=== PATIENT | female | born 1950 | race Caucasian/White ===

== ENCOUNTER 2018-07-31 12:47 | Inpatient (IN) ==
--- NOTE | 2018-07-31 12:37 | Physician Discharge Referral ---
Home Health/Hosp Referral Info Transfer to: Home Health Attending Provider: Dr. Seth - Diagnosis (1) Status post left hip replacement Priority: Primary Status: Acute (2) Osteoarthritis of left hip Priority: Primary Status: Chronic (3) Obesity (BMI 30.0-34.9) Priority: Secondary Status: Acute (4) CKD (chronic kidney disease) Priority: Secondary Status: Chronic (5) Depression with anxiety Priority: Secondary Status: Chronic - Respiratory Orders None Smoking Cessation: Smoking cessation has been advised. For more information, call the [place] Tobacco Quit Line at 2-120-ECZM-NOW. - Diet/Nutrition Diet/Nutrition Orders: Regular - Activity Activity Orders: Ambulate, Chair, Walker - Services Needed Following services are medically necessary services: Nursing, Home Health Aide, Physical Therapy, Occupational Therapy Home Care Orders: Opsite dressing, leave intact until first post-operative visit. If dressing becomes >50% saturated, contact office, remove dressing and place appropriate dressing in its place. Do not allow for dressing to get wet. Zipline/Mobile in place, plan to remove at post-operative day #14-16. Total Joint Precautions x 6 weeks Apply cold therapy wrap 3-6x/day for 20 minutes at a time. Encourage ambulation throughout the day Use Incentive spirometer 10x/hour. Elevate affected extremity above heart as tolerated. Brace: Wear hip abductor brace at night x 6 weeks. Certification: Further, I certify that my clinical findings support that this patient is homebound (i.e. absences from home require considerable and taxing effort and are for medical reasons or episcopalian services or infrequently or short duration when for other reasons) because: Homebound Reason: Post-surgery restriction and or conditions limit ability to leave home Attestation: My signature below is to certify that this patient is under my care and that I, or nurse practitioner, or a physician real estate administrative assistant working with me, has a [id number] encounter with this patient.
--- NOTE | 2018-07-31 12:45 | Discharge Summary ---
Orders not resulted at time of discharge: Pending orders 07/31/18 09:45 XR hip complete LT [XR] Routine Hemoglobin and Hematocrit [HEME] Routine Date of Encounter: 08/03/18 Time of Encounter: 06:40 - Discharge Diagnosis (1) Acute blood loss anemia Priority: Primary Status: Acute (2) Obesity (BMI 30.0-34.9) Priority: Secondary Status: Chronic (3) Status post left hip replacement Priority: Primary Status: Acute (4) CKD (chronic kidney disease) Priority: Secondary Status: Chronic Qualifiers: Chronic kidney disease stage: stage 2 (mild) Qualified Code(s): N18.2 - Chronic kidney disease, stage 2 (mild) (5) Depression with anxiety Priority: Secondary Status: Chronic (6) Osteoarthritis of left hip Priority: Primary Status: Chronic Qualifiers: Osteoarthritis type: primary Qualified Code(s): M16.12 - Unilateral primary osteoarthritis, left hip - Hospital Course Hospital course: Ms. Langley is a 68 year old female s/p total hip replacement, did well receive antibiotics and had PT/OT dc stable condition followup 2 weeks - Time Spent with Patient Total time spent providing and/or coordinating discharge services: - Discharge Medications Prescriptions: New Aspirin Enteric Coated [Aspirin EC] 325 mg PO BID #20 tablet. OxyCODONE Immed Rel [Roxicodone 5 MG] 5 mg PO Q6HR PRN 5 Days #20 tablet PRN Reason: Pain Aspirin Enteric Coated [Aspirin EC] 325 mg PO BID #20 tablet. OxyCODONE Immed Rel [Roxicodone 5 MG] 5 mg PO Q6HR PRN 5 Days #20 tablet PRN Reason: Pain No Action Sertraline [Zoloft] 100 mg PO DAILY LORazepam [Ativan] 1 mg PO BID Ibuprofen [Motrin Ib] 200 mg PO Q8H PRN PRN Reason: Mild To Moderate Pain Home Medications: Aspirin Enteric Coated [Aspirin EC] 325 mg PO BID #20 tablet. 07/31/18 [Rx] Aspirin Enteric Coated [Aspirin EC] 325 mg PO BID #20 tablet. 07/31/18 [Rx] Ibuprofen [Motrin Ib] 200 mg PO Q8H PRN 07/31/18 [History] LORazepam [Ativan] 1 mg PO BID 07/31/18 [History] OxyCODONE Immed Rel [Roxicodone 5 MG] 5 mg PO Q6HR PRN 5 Days #20 tablet 07/31/18 [Rx] OxyCODONE Immed Rel [Roxicodone 5 MG] 5 mg PO Q6HR PRN 5 Days #20 tablet 07/31/18 [Rx] Sertraline [Zoloft] 100 mg PO DAILY 07/31/18 [History] Allergies/Adverse Reactions: Allergy/AdvReac Type Severity Reaction Status Date / Time No Known Allergies Allergy Verified 07/31/18 13:40 Primary care physician: Zaire Amaya - Patient Status Disposition: Home Health Service Condition: Good Functional capacity at discharge: uses cane/walker Overall status at discharge: patient is progressing back to baseline - Discharge Instructions Follow Up With: Zaire Amaya DO [Primary Care Provider] - Additional Instructions: Discharge Instructions: Total Hip Replacement Please call [facility] ([phone]), your Primary Care Physician, or report to the Emergency Room if you have any of the following symptoms: Nausea, vomiting, fever greater that 101.5, swelling, chest pain, shortness of breath, increased pain/redness/drainage/odor for your incision site, numbness/tingling, or any other concerning symptoms. ACTIVITY:Weight-bearing as tolerated for 8 weeks with hip dislocation precautions that physical therapy taught you. You may progress as tolerated under the guidance of your physical therapist. You do not need to sleep with a pillow between your legs. You can also seep on the operative side or on your stomach. Incentive Spirometer 10 times an hour. MEDICATIONS: Upon discharge resume your home medications. Take all the medications as prescribed. Take a stool softener if taking narcotic pain medications. Stool softeners are only effective if you drink enough fluids. Drink 6-8 glass of water or fluids a day, unless this is not allowed for another health problem. Despite using stool softeners, if you haven't had a bowel movement in 3 days, please switch to a gentle laxative. Gentle laxatives are sold over the counter. You should have a bowel movement within 24 hours, if not call the office. You will be discharged from the hospital with a prescription for pain medication. You are encouraged to decrease the use of narcotic pain medication as tolerated. Should you require a refill, please call the office. [facility] prescribes narcotic pain medication for only 4-6 weeks after surgery. If you require pain medication beyond this time period, you may be referred to your Primary Care Physician or to the Pain Clinic for further evaluation. Plan ahead for refills on pain medication as many narcotics either need to be picked up at the office or mailed. It is best to call 48-72 hours in advance of needing a prescription refill so you don't run out of medication. To help control the post-operative pain, you may take NSAIDs (Aleve,Advil, Motrin, ibuprofen, naprosyn) or Tylenol as prescribed on the bottle in addition to the pain medication. ANTICOAGULATION (blood thinners): Continue your Aspirin, Lovenox or Coumadin as prescribed to help prevent a blood clot in the leg or in the lungs. As long as your incision remains dry and you tolerate the NSAIDs (Aleve, Advil, Motrin, Ibuprofen, Naprosyn), it is OK to use the NSAIDS while you are taking your anticoagulation medication. Should your incision start to drain, stop the NSAID and contact our office. Common symptoms of blood clot in the legs include: localized pain, swelling, calf tenderness, redness or discoloration of the skin. Blood clot in the lung symptoms include: shortness of breath, rapid pulse, sweating, and chest pain that worsens with deep breathing, coughing up blood, lightheadedness, feelings of anxiety. If you experience any of these symptoms notify your physician immediately, go to the emergency room, or if having trouble breathing, call 911. WOUND CARE: Leave the dressing on for 7 to 10days. You may change the dressing if it is saturated greater than 50%. Do not get the dressing wet at anytime. Wash your hands with antibacterial soap, rinse and dry prior to any wound care. If you have alecia the visiting nurse or rehab facility can remove the stapes 10-14 days after surgery and place steri-strips across the wound. Leave the steri-strips in place until they fall off on their own. You may let water from the shower run on top of the steri-strips. If you do not have a visiting nurse or rehab facility, you will need to return to the office at 10-14 days for the alecia to be removed. If you have itching or redness around the dressing call the office. FOLLOW-UP: Please follow up with your surgeon in the orthopedic clinic in 6 weeks from the day of surgery. If you have alecia that need to be removed, you will need to come back to the office in 10-14 days from the day of surgery.
--- NOTE | 2018-07-31 13:07 | Anesthesia Evaluation PreOp ---
Date of Encounter: 07/31/18 Time of Encounter: 13:26 - Past History Planned Operation: Left robotic total hip arthroplasty Cardiac History: Denies any Significant Hx Pulmonary History: Denies Any Significant HX MISSIONARY COORDINATOR History: Other (anxiety/depression) Other Medical History: Renal (stage 3 ckd) Anesthesia History: No Prior Anesthetic Complications, Past Anesthesia (left wr ist ORIF) Medications and Allergies Aspirin Enteric Coated [Aspirin EC] 325 mg PO BID #20 tablet. 07/31/18 [Rx] Aspirin Enteric Coated [Aspirin EC] 325 mg PO BID #20 tablet. 07/31/18 [Rx] OxyCODONE Immed Rel [Roxicodone 5 MG] 5 mg PO Q6HR PRN 5 Days #20 tablet 07/31/18 [Rx] OxyCODONE Immed Rel [Roxicodone 5 MG] 5 mg PO Q6HR PRN 5 Days #20 tablet [Rx] Allergy/AdvReac Type Severity Reaction Status Date / Time No Known Allergies Allergy Verified 07/31/18 13:15 - Meds/Allergy Pre-op Review Medications Reviewed: Yes Allergies Reviewed: Yes Beta Blockers on Current Med List: No Anesthesia Results - Labs Labs completed at [facility]: 07-23-18 MRSA nasal screen negative 07-21-18 Labs: WBC 9.6 Hgb 14.0 Hct 41.1 Plt 351 PT 12.2 INR 1.04 PTT 39.4 Na 140 K 3.6 Cl- 103 CO2 24 BUN 19 Cr 0.92 Glucose 103 - Imaging EKG: report reviewed, image reviewed (SR, probable left atrial enlargement) Anesthesia Exam Weight: 79 kg NPO (# of Hours): > 8 hrs - HEENT Pupil (Motor): Pupils equal, EOMI Mallampati: III Teeth: Prosthesis (permanent upper bridge) Oral Opening: Greater than 3 - MISSIONARY COORDINATOR LOC: Oriented - Cardiac Rhythm: Regular Murmur: None - Pulmonary Breath Sounds: bilateral Clear Respiratory Effort: Symmetrical Anesthesia Assess/Plan ASA Score: 2 Level of consciousness: Cooperative Anesthetic Plan: MAC, Spinal Monitoring Plan: Standard Monitors Recovery Plan: PACU
[2018-07-31] MEDS ORDERED: CeFAZolin Syr 2,000MG/20 ML 2,000 MG/20 ML SYRINGE IVPB ONE (13:16)
[2018-07-31] MEDS ORDERED: Ringers Solution, Lactated 1,000 ML IVC SCH ×2 (13:30→16:39)
[2018-07-31] MEDS ORDERED: *HR* HYDROcodone/Acet 10/325 mg TABLET PO ONE (13:31)
[2018-07-31] MEDS ORDERED: Celecoxib 200 MG CAPSULE PO ONE (13:32)
[2018-07-31] MEDS ORDERED: *HR* HYDROcodone/Acet 5/325 mg TABLET PO ONE (13:34)
[2018-07-31] MEDS ORDERED: Lidocaine -MPF 1% 5 ML AMPUL ONE (13:36)
[2018-07-31] MEDS ORDERED: Ethanol\\Acetic Acid\\Na Ace\\Ben 1,000 ML IRRIG.SOLN IR ONE (13:49)
--- NOTE | 2018-07-31 13:50 | History & Physical Report ---
Date of Encounter: 07/31/18 Time of Encounter: 13:50 24 Hour HP Update - Instructions Instructions: If the History and Physical is less than 30 days old and was completed prior to A.M. admission and or procedure and has NOT been updated on calendar day of procedure please complete this update prior to performing procedure. - Update Patient reports changes in Medical Condition: No Changes in examination, assessment, or condition: No Changes in Medication: No Preop tests/diagnostics Reviewed: Yes Surgery Remains Indicated: Yes Consent for Planned Operative Procedure(s) Verified: Yes - Pre-Operative Checklist Preoperative Checklist Indicated: No Prophylactic Antibiotic Ordered: Yes Is VTE Prophylaxis Indicated?: Yes
[2018-07-31] MEDS ORDERED: EPHEDrine 50 MG/ML VIAL ONE (14:39)
[2018-07-31] MEDS ORDERED: *HR* Midazolam HCl 2 MG/2 ML VIAL ONE (14:39)
[2018-07-31] MEDS ORDERED: Tranexamic Acid 1,000 MG/10 ML VIAL ONE (14:39)
[2018-07-31] MEDS ORDERED: *HR* FentaNYL (PF) 100 MCG/2 ML VIAL ONE (14:39)
[2018-07-31] MEDS ORDERED: *HR* Propofol 200 MG/20 ML VIAL IVP ONE ×2 (14:39→15:16)
--- NOTE | 2018-07-31 15:32 | Anesthesia Procedures ---
Date of Encounter: 07/31/18 Time of Encounter: 14:10 Procedures: Anesthesia - Epidural/Spinal Patient ID/Chart reviewed: Yes Patient examined: Yes Consent Obtained: Yes Supplemental Oxygen: Nasal Cannula Supplemental Oxygen Rate (L/min): 3 Sedation: Versed (mg): 2 Sedation: Fentanyl (mcg): 100 Site Prep: Aseptic Technique, Sterile prep and drape, Povidone-Iodine 1% Patient position: upright Local Anesthetic: Lidocaine 1% Amount of Local Anesthetic used: 3 Interspace Used: L4-L5 Blood: No CSF: Yes Paresthesia: No Spinal Needle Gauge: 25 (3.5" pencan needle) Spinal Dose: 2.5mL of 0.5% isobaric bupivicaine Procedure: successful on 1st attempt; patient tolerated procedure well; VSS Vitals + FHT's: see holding vital signs note
--- NOTE | 2018-07-31 15:35 | Orthopedic Operative Note ---
Date of procedure: 07/31/18 Pre-op diagnosis: Osteoarthritis left hip Post-op diagnosis: same Procedure: Procedure: Left Total Hip Replacment robotic-assisted Estimated blood loss: 200 cc Hardware: Metal and polyethylene replacement. [place] DM Cup: 54 cup Femoral size 5 stem Head: 0 head with Flakita Procedural Notes: Grade 4 arthritic changes femoral head acetabular socket, procedure performed with robotic assistance. 1 mm long operative versus nonoperative leg as measured by CT scan Operative procedure: The patient was brought to the operating room and placed on the operating room table. After general anesthesia was administered the patient was placed in the lateral decubitus position with the operative leg up. All pressure points were padded appropriately and the head was stabilized in the neutral position. The operative extremity was prepped and draped in the sterile surgical fashion patient received IV antibiotic prior to skin incision. 3 Steinmann pins were placed in the iliac crest 3 cm proximal to the anterior superior iliac spine this was for the robotic-assisted sensor. This was done through a small 2 cm incision. A standard posterior approach is made to the operative hip, the incision was made through the skin and subcutaneous tissue hemostasis was obtained with Bovie cautery. Using careful sharp dissection the fascia was identified and incised exposing the external rotators. The greater trochanter was marked, and length was measured at this time utilizing robotic assistance. The external rotators were released off the greater trochanter and tagged with #2 FiberWire suture. The capsule was T'd open and the hip was brought into internal rotation. Patient noted to have grade 4 arthritic changes femoral head. The femoral neck cut was made at the appropriate level roughly 15 mm proximal to the lesser trochanter aced on preoperative templating. An anterior capsulotomy was performed for the anterior retractor. Soft tissues removed from the acetabulum. Patient noted to have grade 4 arthritic changes acetabulum. The acetabulum reference point was confirmed. The acetabulum was then mapped with robotic assistance. Based on the preoperative plan the acetabulum was reamed in one step with a 54 reamer. The 54 acetabulum was impacted with robotic assistance and 40 degrees of abduction and 23 degrees of anteversion. The hip was brought back in to internal rotation and prepared with the primer boxer followed by the canal finder followed by the reaming process to a size 12 broaching process in 20 degrees anteversion. It was broached up to the appropriate size 5 Trial reduction revealed leg lengths close to normal. The femoral implant was impacted in place in 20 degrees of anteversion. Trial reduction found the hip to be stable with 0 head and Flakita. The trials were removed and the real implants were impacted in place. The hip was reduced, patient had robotic confirmed leg length of 15 mm longer than the contralateral side. The hip had excellent stability with forward flexion to 90 degrees adduction of 30 degrees and internal rotation of 60 degrees. The hip had no shuck. The hip sat with an antibacterial solution. It was irrigated out with 2 L of pulse irrigation. The Steinmann pins were removed. The deep tissue was irrigated and closed deep with #1 PDS suture superficially with 0 PDS suture and skin was closed with Dermabond and zip tie. The patient was placed in a sterile dressing and abduction pillow. The patient was extubated and transferred to the recovery room in stable condition. Anesthesia: spinal Surgeon: Van Seth Was there an executive assistant present: No Estimated blood loss (cc): 200 Condition: stable Disposition: PACU
--- NOTE | 2018-07-31 16:20 | Anesthesia Evaluation Post Op ---
Date of Encounter: 07/31/18 Time of Encounter: 16:19 - Vital Signs Vital Signs: Vital Signs/O2 Sat, Most Current Temp Pulse Resp BP Pulse Ox 98.2 F 61 12 128/62 97 07/31/18 16:12 07/31/18 16:12 07/31/18 16:12 07/31/18 16:12 07/31/18 16:12 - Lungs Lungs: Clear Ascult./Percussion - Airway Airway: Non-obstructed - Cardiovascular Regular Rate - Mental Status Mental Status: Alert & Oriented, Answers Appropriately - Pain Pain Scale: 0 Pain Scale used: Numeric (1 - 10) - Nausea Vomiting Nausea Vomiting: Not Present - Hydration Hydration: Ice chips, Has not voided - Discharge PostOp Status: Transfer Patient to floor
[2018-07-31 16:30] LABS: Hematocrit 33.2 % (35.3-44.9); Hemoglobin 11.3 g/dL (11.5-15.4)
[2018-07-31] MEDS ORDERED: HYDROcodone BIT/Homatropine 5 MG TABLET PO PRN (16:39)
[2018-07-31] MEDS ORDERED: Ondansetron 4 MG/2 ML VIAL IVP PRN (16:39)
[2018-07-31] MEDS ORDERED: Sennosides 8.6 MG TABLET PO PRN (16:39)
[2018-07-31] MEDS ORDERED: Naloxone 0.4 MG/ML INJ IVP PRN (16:39)
[2018-07-31] MEDS ORDERED: Temazepam 15 MG CAPSULE PO PRN (16:39)
[2018-07-31] MEDS ORDERED: Ibuprofen 600 MG TABLET PO SCH (16:39)
[2018-07-31] MEDS ORDERED: MOM Conc 10 ML UD.LIQ PO PRN (16:39)
[2018-07-31] MEDS ORDERED: traMADol 50 MG TABLET PO PRN (16:39)
[2018-07-31] MEDS ORDERED: *HR* Promethazine 25 MG/ML VIAL IVP PRN (16:39)
[2018-07-31] MEDS ORDERED: *HR* Enoxaparin 30 MG/0.3 ML SYRINGE SQ SCH (18:00)
[2018-07-31] MEDS: *HR* Enoxaparin 30 MG/0.3 ML SYRINGE SQ SCH (19:36)
[2018-07-31] MEDS: Ascorbic Acid 500 MG TABLET PO SCH (19:36)
[2018-07-31] MEDS: *HR* OxyCODONE Immed Rel 5 MG TABLET PO PRN (20:44)
[2018-07-31] MEDS: *HR* LORazepam 1 MG TABLET PO SCH (21:44)
[2018-08-01] MEDS: *HR* Enoxaparin 30 MG/0.3 ML SYRINGE SQ SCH ×2 (06:27→16:45)
[2018-08-01] MEDS: *HR* OxyCODONE Immed Rel 5 MG TABLET PO PRN ×3 (06:27→21:00)
[2018-08-01] MEDS: Ibuprofen 600 MG TABLET PO SCH ×3 (06:28→23:24)
[2018-08-01] MEDS: Multivit/Ca/Min/Fe/FA 1 TAB TABLET PO SCH (07:19)
[2018-08-01] MEDS: Ascorbic Acid 500 MG TABLET PO SCH ×2 (07:19→16:45)
[2018-08-01] MEDS: *HR* LORazepam 1 MG TABLET PO SCH ×2 (07:20→19:26)
[2018-08-01 07:44] LABS: Basophils % 0.1 %; Eosinophils % 0.3 %; Hematocrit 32.2 % (35.3-44.9); Hemoglobin 10.7 g/dL (11.5-15.4); Immature Granulocytes % 0.3 % (0-4); Lymphocytes # 1.1 K/mcL (0.6-4.6); Lymphocytes % 14.8 %; Mean Corpuscular HGB Conc 33.2 g/dL (31.6-35.5); Mean Corpuscular Hemoglobin 31.7 pg (28.0-33.3); Mean Corpuscular Volume 95.3 fL (83.0-100.0); Mean Platelet Volume 9.5 fL (9.4-12.4); Monocytes # 0.7 K/mcL (0.0-1.3); Monocytes % 9.2 %; Neutrophils # 5.7 K/mcL (1.6-8.9); Platelet Count 247 K/mcL (140-400); Red Blood Count 3.38 M/mcL (3.82-4.97); Red Cell Distribution Width 12.8 % (11.5-14.5); Segmented Neutrophils % 75.3 %
[2018-08-01 08:03] LABS: BUN/Creatinine Ratio 24 (6-26); Blood Urea Nitrogen 16 mg/dL (8-23); Calcium 8.6 mg/dL (8.6-10.3); Carbon Dioxide 24 mEq/L (23-29); Chloride 108 mEq/L (98-107); Glucose 119 mg/dL (70-105); Osmolality,Calculated 288 (280-300); Potassium 3.3 mEq/L (3.5-5.1); Sodium 138 mEq/L (136-145); eGFR For Non-African Americans > 60 (> 60)
[2018-08-01] MEDS ORDERED: Ketorolac 30 MG/ML VIAL IVP PRN (11:27)
[2018-08-01] MEDS ORDERED: Acetaminophen IV 1,000 MG/100 ML INFUS..BTL IVPB PRN (11:28)
[2018-08-01] MEDS: Acetaminophen IV 1,000 MG/100 ML INFUS..BTL IVPB SCH ×2 (11:51→16:44)
--- NOTE | 2018-08-01 15:05 | Orthopedics Progress Note ---
Date of Encounter: 08/01/18 Time of Encounter: 15:03 Subjective Principal diagnosis: Status post left total hip arthroplasty Interval history: Patient reports she is doing well with no current complaints She states she did well with therapy today Left hip: Incision is clean dry intact with dressings in place Bilateral calves are soft and nontender Foot pumps are in place Grossly neurovascular intact distally Assessment: Postoperative #1 status post a left total hip arthroplasty Plan: Continue OT/PT Continue DVT prophylaxis Discharge planning to home with home therapy Objective Vital signs: Vital Signs Temp Pulse Resp BP Pulse Ox 08/01/18 10:37 97.9 F 78 16 139/63 96 08/01/18 06:50 97.7 F 64 16 112/64 95 08/01/18 04:41 98.1 F 66 16 111/60 96 08/01/18 00:23 97.9 F 68 16 118/64 95 07/31/18 19:47 97.7 F 68 16 133/65 95 07/31/18 16:22 98.2 F 62 12 135/60 97 07/31/18 16:12 98.2 F 61 12 128/62 97 07/31/18 16:02 62 12 128/63 96 07/31/18 15:52 62 16 125/63 100 07/31/18 15:42 97.6 F 64 16 128/72 100 Intake and Output 07/31/18 08/01/18 08/01/18 23:59 07:59 15:59 Intake Total 600 / 1280 680 / 1280 Output Total 200 / 400 Balance -200 / -380 600 / 1280 680 / 1280 Intake: IV Fluids 100 / 300 200 / 300 Ofirmev 1,000 mg/100 ml 1,000 100 / 100 mg In 100 ml @ 400 mls/hr IVPB Q6HR MERVIN Rx#:[id number] Ancef 2,000 MG In 0.9 % Sodium 100 / 200 100 / 200 Chloride 100 ML @ 200 mls/hr IVPB Q8HR MERVIN Rx#:[id number] Oral 500 / 980 480 / 980 Output: Urine 200 / 200 Other: Meal Lunch Percent of Meal Consumed 100% # Voids 1 1 - Labs CBC & BMP: 08/01/18 07:23 08/01/18 07:23 Labs: Abnormal lab results RBC 3.38 M/mcL (3.82-4.97) L 08/01/18 07:23 Hgb 10.7 g/dL (11.5-15.4) L 08/01/18 07:23 Hct 32.2 % (35.3-44.9) L 08/01/18 07:23 Potassium 3.3 mEq/L (3.5-5.1) L 08/01/18 07:23 Chloride 108 mEq/L (98-107) H 08/01/18 07:23 Glucose 119 mg/dL (70-105) H 08/01/18 07:23 - VTE Documentation of Mechanical Device: Venous foot pump, device Consult Discharge Plan - Plan Referrals: Zaire Amaya DO [Primary Care Provider] -
[2018-08-02] MEDS: Acetaminophen IV 1,000 MG/100 ML INFUS..BTL IVPB SCH ×3 (00:43→11:17)
[2018-08-02] MEDS: Ibuprofen 600 MG TABLET PO SCH ×2 (06:14→12:48)
[2018-08-02] MEDS: *HR* Enoxaparin 30 MG/0.3 ML SYRINGE SQ SCH (06:15)
[2018-08-02 07:17] LABS: Basophils % 0.4 %; Eosinophils % 0.4 %; Hematocrit 29.5 % (35.3-44.9); Hemoglobin 10.1 g/dL (11.5-15.4); Immature Granulocytes % 0.4 % (0-4); Lymphocytes # 1.6 K/mcL (0.6-4.6); Lymphocytes % 18.9 %; Mean Corpuscular HGB Conc 34.2 g/dL (31.6-35.5); Mean Corpuscular Volume 93.4 fL (83.0-100.0); Mean Platelet Volume 9.6 fL (9.4-12.4); Monocytes # 0.9 K/mcL (0.0-1.3); Monocytes % 11.1 %; Neutrophils # 5.6 K/mcL (1.6-8.9); Platelet Count 237 K/mcL (140-400); Red Blood Count 3.16 M/mcL (3.82-4.97); Red Cell Distribution Width 12.8 % (11.5-14.5); Segmented Neutrophils % 68.8 %
[2018-08-02 07:26] LABS: BUN/Creatinine Ratio 21 (6-26); Blood Urea Nitrogen 14 mg/dL (8-23); Calcium 8.6 mg/dL (8.6-10.3); Carbon Dioxide 25 mEq/L (23-29); Chloride 106 mEq/L (98-107); Glucose 118 mg/dL (70-105); Osmolality,Calculated 286 (280-300); Sodium 137 mEq/L (136-145); eGFR For Non-African Americans > 60 (> 60)
[2018-08-02] MEDS: Multivit/Ca/Min/Fe/FA 1 TAB TABLET PO SCH (07:54)
[2018-08-02] MEDS: Ascorbic Acid 500 MG TABLET PO SCH (07:54)
[2018-08-02] MEDS: *HR* LORazepam 1 MG TABLET PO SCH (07:54)
[2018-08-02 11:10] VITALS: BP 145/62
[2018-08-02] MEDS ORDERED: Potassium Chloride 20 MEQ, Lidocaine 1% 2 ML in D5% in Water 250 ML IVPB ONE (11:59)
--- NOTE | 2018-08-02 14:46 | Orthopedics Progress Note ---
Date of Encounter: 08/02/18 Time of Encounter: 14:46 Subjective Principal diagnosis: Status post left total hip arthroplasty Interval history: Patient reports she is doing well with no current complaints She states she did well with therapy today Left hip: Incision is clean dry intact with dressings in place, mild spotting posteriorly Bilateral calves are soft and nontender Foot pumps are in place Grossly neurovascular intact distally Assessment: Postoperative #2 status post a left total hip arthroplasty Plan: Continue OT/PT Continue DVT prophylaxis Discharge to home with home therapy Objective Vital signs: Vital Signs Temp Pulse Resp BP Pulse Ox 08/02/18 11:04 98.2 F 69 14 145/62 97 08/02/18 06:00 98 F 69 15 127/60 94 08/01/18 23:22 99.3 F 80 15 107/61 93 08/01/18 19:25 98.6 F 78 16 113/54 96 08/01/18 16:36 98.3 F 72 16 101/53 93 Intake and Output 08/01/18 08/02/18 08/02/18 23:59 07:59 15:59 Intake Total 900 / 2180 100 / 540 440 / 540 Balance 900 / 2180 100 / 540 440 / 540 Intake: IV Fluids 100 / 300 200 / 300 Ofirmev 1,000 mg/100 ml 1,000 100 / 300 200 / 300 mg In 100 ml @ 400 mls/hr IVPB Q6HR MERVIN Rx#:[id number] Oral 900 / 1880 240 / 240 Other: Meal Dinner Breakfast Percent of Meal Consumed 90% 100% # Voids 1 1 Weight 82.5 kg Patient Weight 08/02/18 23:59 Weight 82.5 kg - Labs CBC & BMP: 08/02/18 06:50 08/02/18 06:50 Labs: Abnormal lab results RBC 3.16 M/mcL (3.82-4.97) L 08/02/18 06:50 Hgb 10.1 g/dL (11.5-15.4) L 08/02/18 06:50 Hct 29.5 % (35.3-44.9) L 08/02/18 06:50 Potassium 3.0 mEq/L (3.5-5.1) L 08/02/18 06:50 Chloride 108 mEq/L (98-107) H 08/01/18 07:23 Glucose 118 mg/dL (70-105) H 08/02/18 06:50 - VTE Documentation of Mechanical Device: Venous foot pump, device Consult Discharge Plan - Plan Additional Instructions: Discharge Instructions: Total Hip Replacement Please call [facility] ([phone]), your Primary Care Physician, or report to the Emergency Room if you have any of the following symptoms: Nausea, vomiting, fever greater that 101.5, swelling, chest pain, shortness of breath, increased pain/redness/drainage/odor for your incision site, numbness/tingling, or any other concerning symptoms. ACTIVITY:Weight-bearing as tolerated for 8 weeks with hip dislocation precautions that physical therapy taught you. You may progress as tolerated under the guidance of your physical therapist. You do not need to sleep with a pillow between your legs. You can also seep on the operative side or on your stomach. Incentive Spirometer 10 times an hour. MEDICATIONS: Upon discharge resume your home medications. Take all the medications as prescribed. Take a stool softener if taking narcotic pain medi cations. Stool softeners are only effective if you drink enough fluids. Drink 6- 8 glass of water or fluids a day, unless this is not allowed for another health problem. Despite using stool softeners, if you haven't had a bowel movement in 3 days, please switch to a gentle laxative. Gentle laxatives are sold over the counter. You should have a bowel movement within 24 hours, if not call the office. You will be discharged from the hospital with a prescription for pain medication. You are encouraged to decrease the use of narcotic pain medication as tolerated. Should you require a refill, please call the office. [facility] prescribes narcotic pain medication for only 4-6 weeks after surgery. If you require pain medication beyond this time period, you may be referred to your Primary Care Physician or to the Pain Clinic for further evaluation. Plan ahead for refills on pain medication as many narcotics either need to be picked up at the office or mailed. It is best to call 48-72 hours in advance of needing a prescription refill so you don't run out of medication. To help control the post-operative pain, you may take NSAIDs (Aleve,Advil, Motrin, ibuprofen, naprosyn) or Tylenol as prescribed on the bottle in addition to the pain medication. ANTICOAGULATION (blood thinners): Continue your Aspirin, Lovenox or Coumadin as prescribed to help prevent a blood clot in the leg or in the lungs. As long as your incision remains dry and you tolerate the NSAIDs (Aleve, Advil, Motrin, Ibuprofen, Naprosyn), it is OK to use the NSAIDS while you are taking your anticoagulation medication. Should your incision start to drain, stop the NSAID and contact our office. Common symptoms of blood clot in the legs include: localized pain, swelling, calf tenderness, redness or discoloration of the skin. Blood clot in the lung symptoms include: shortness of breath, rapid pulse, sweating, and chest pain that worsens with deep breathing, coughing up blood, lightheadedness, feelings of anxiety. If you experience any of these symptoms notify your physician immediately, go to the emergency room, or if having trouble breathing, call 911. WOUND CARE: Leave the dressing on for 7 to 10days. You may change the dressing if it is saturated greater than 50%. Do not get the dressing wet at anytime. Wash your hands with antibacterial soap, rinse and dry prior to any wound care. If you have alecia the visiting nurse or rehab facility can remove the stapes 10-14 days after surgery and place steri-strips across the wound. Leave the steri-strips in place until they fall off on their own. You may let water from the shower run on top of the steri-strips. If you do not have a visiting nurse or rehab facility, you will need to return to the office at 10-14 days for the alecia to be removed. If you have itching or redness around the dressing call the office. FOLLOW-UP: Please follow up with your surgeon in the orthopedic clinic in 6 weeks from the day of surgery. If you have alecia that need to be removed, you will need to come back to the office in 10-14 days from the day of surgery. Referrals: Zaire Amaya DO [Primary Care Provider] -
== END 2018-08-02 15:59 | disposition home health service (06) | DRG 470 ==
LOC: SAMDAY 12:47 → 3NENU 16:35
PROVIDERS: ADMIT Orthopaedic Surgery; ATTEND Orthopaedic Surgery

== ENCOUNTER 2018-11-25 06:54 | Inpatient (IN) ==
--- NOTE | 2018-11-25 07:55 | Anesthesia Evaluation PreOp ---
Date of Encounter: 11/25/18 Time of Encounter: 07:52 - Past History Planned Operation: Right robotic total hip Cardiac History: Denies any Significant Hx Pulmonary History: Former smoker (quit in the ) CIRCULATION CLERK History: Denies Any Significant HX Other Medical History: Renal (ckd stage 3) Anesthesia History: No Prior Anesthetic Complications, Past Anesthesia (left hip under spinal, orif wrist 2010) Alcohol Use: none Drug use: none Medications and Allergies LORazepam [Ativan] 1 mg PO BID 07/31/18 [History] Sertraline [Zoloft] 100 mg PO QAM 07/31/18 [History] Allergy/AdvReac Type Severity Reaction Status Date / Time No Known Allergies Allergy Verified 11/25/18 07:34 - Meds/Allergy Pre-op Review Medications Reviewed: Yes Allergies Reviewed: Yes Beta Blockers on Current Med List: No Anesthesia Results - Labs Laboratory Tests 11/04/18 11/04/18 11/04/18 11:38 11:38 11:38 WBC 7.6 Hgb 13.4 Hct 41.2 Plt Count 347 PT 11.3 INR 1.0 APTT 38.3 H Sodium 137 Potassium 3.7 Chloride 108 H Carbon Dioxide 21 L BUN 21 Creatinine 0.79 Est GFR ( Amer) > 60 Est GFR (Non-Af Amer) > 60 BUN/Creatinine Ratio 27 H Glucose 158 H Calculated Osmolality 290 Calcium 9.2 Anesthesia Exam Last Vital Signs Temp 97.9 F 11/25/18 07:17 Pulse 82 11/25/18 07:17 Resp 18 11/25/18 07:17 BP 145/79 11/25/18 07:17 Pulse Ox 95 11/25/18 07:17 Weight: 82 kg NPO (# of Hours): > 8 hrs - HEENT Pupil (Motor): Pupils equal, EOMI Mallampati: III Teeth: Normal Oral Opening: Greater than 3 - CIRCULATION CLERK LOC: Oriented - Cardiac Rhythm: Regular Murmur: None - Pulmonary Breath Sounds: bilateral Clear Respiratory Effort: Symmetrical Anesthesia Assess/Plan ASA Score: 2 Level of consciousness: Cooperative Anesthetic Plan: MAC, Spinal Monitoring Plan: Standard Monitors Recovery Plan: PACU
[2018-11-25] MEDS ORDERED: Gabapentin 300 MG CAPSULE PO ONE (08:08)
[2018-11-25] MEDS ORDERED: *HR* OxyCODONE Immed Rel 5 MG TABLET PO PRN ×2 (08:09→11:54)
[2018-11-25] MEDS ORDERED: *HR* OxyCODONE ER (12 HR) 10 MG TABLET PO ONE (08:09)
[2018-11-25] MEDS ORDERED: CeFAZolin Syr 2,000MG/20 ML 2,000 MG/20 ML SYRINGE IVPB ONE (08:20)
[2018-11-25] MEDS ORDERED: Ringers Solution, Lactated 1,000 ML IVC SCH ×2 (08:30→11:54)
--- NOTE | 2018-11-25 08:38 | History & Physical Report ---
Date of Encounter: 11/25/18 Time of Encounter: 08:37 24 Hour HP Update - Instructions Instructions: If the History and Physical is less than 30 days old and was completed prior to A.M. admission and or procedure and has NOT been updated on calendar day of procedure please complete this update prior to performing procedure. - Update Patient reports changes in Medical Condition: No Changes in examination, assessment, or condition: No Changes in Medication: No Preop tests/diagnostics Reviewed: Yes Surgery Remains Indicated: Yes Consent for Planned Operative Procedure(s) Verified: Yes - Pre-Operative Checklist Preoperative Checklist Indicated: No Prophylactic Antibiotic Ordered: Yes Is VTE Prophylaxis Indicated?: Yes
[2018-11-25] MEDS ORDERED: *HR* FentaNYL (PF) 100 MCG/2 ML VIAL ONE ×2 (08:45→11:15)
[2018-11-25] MEDS ORDERED: Propofol 500 MG/50 ML INFUS..BTL ONE (08:47)
[2018-11-25] MEDS ORDERED: Ethanol\\Acetic Acid\\Na Ace\\Ben 1,000 ML IRRIG.SOLN IR ONE (09:01)
--- NOTE | 2018-11-25 09:33 | Anesthesia Procedures ---
Date of Encounter: 11/25/18 Time of Encounter: 09:29 Procedures: Anesthesia - Epidural/Spinal Patient ID/Chart reviewed: Yes Patient examined: Yes Patient position: upright Local Anesthetic: Lidocaine 1% Amount of Local Anesthetic used: [address]: Tegaderm Interspace Used: L3-L4 Loss of Resistance (MYESHA): No Blood: No CSF: Yes Paresthesia: No Spinal Needle Gauge: 25 Procedure: Strict asepsis, L3-4 x 1 attempt per YOVANNY Gamez under direct supervision. NO parasthesias, no heme.
[2018-11-25] MEDS ORDERED: Tranexamic Acid 1,000 MG/10 ML VIAL ONE (09:37)
[2018-11-25] MEDS ORDERED: Dexamethasone 4 MG/ML VIAL ONE (09:45)
[2018-11-25] MEDS ORDERED: Ondansetron 4 MG/2 ML VIAL ONE (09:45)
--- NOTE | 2018-11-25 10:45 | Orthopedic Operative Note ---
Date of procedure: 11/25/18 Pre-op diagnosis: Right hip arthritis Post-op diagnosis: same Procedure: Procedure: Right Total Hip Replacment robotic-assisted Estimated blood loss: 200 cc Hardware: Metal and polyethylene replacement. Janelle DM Cup: 54 cup Femoral size 5 anteverted Anato stem Head:0 head with Flakita Procedural Notes: Grade 4 arthritic changes femoral head acetabular socket, procedure performed with robotic assistance. Operative leg 1 mm short than nonoperative as measured by preoperative CT scan. Operative procedure: The patient was brought to the operating room and placed on the operating room table. After anesthesia was administered the patient was placed in the lateral decubitus position with the operative leg up. All pressure points were padded appropriately and the head was stabilized in the neutral position. The operative extremity was prepped and draped in the sterile surgical fashion patient received IV antibiotic prior to skin incision. 3 Steinmann pins were placed in the iliac crest 3 cm proximal to the anterior superior iliac spine this was for the robotic-assisted sensor. This was done through a small 2 cm incision. A standard posterior approach is made to the operative hip, the in cision was made through the skin and subcutaneous tissue hemostasis was obtained with Bovie cautery. Using careful sharp dissection the fascia was identified and incised exposing the external rotators. The greater trochanter was marked, and length was measured at this time utilizing robotic assistance. The external rotators were released off the greater trochanter and tagged with #2 FiberWire s uture. The capsule was T'd open and the hip was brought into internal rotation. Patient noted to have grade 4 arthritic changes femoral head. The femoral neck cut was made at the appropriate level roughly 15 mm proximal to the lesser trochanter aced on preoperative templating. An anterior capsulotomy was performed for the anterior retractor. Soft tissues removed from the acetabulum. Patient noted to have grade 4 arthritic changes acetabulum. The acetabulum reference point was confirmed. The acetabulum was then mapped with robotic assistance. Based on the preoperative plan the acetabulum was reamed in one step with a 54 reamer. The 54 acetabulum was impacted with robotic assistance and 40 degrees of abduction and 20 degrees of anteversion. The hip was brought back in to internal rotation and prepared with the box lining machine operator followed by the canal finder followed by the reaming process to a size 12 broaching process in 20 degrees anteversion. It was broached up to the appropriate size 5 Trial reduction revealed leg lengths close to normal. The femoral implant was impacted in place in 20 degrees of anteversion. Trial reduction found the hip to be stable with 0 head and Flakita. The trials were removed and the real implants were impacted in place. The hip was reduced, patient had robotic confirmed leg length of 10 mm longer than the contralateral side. The hip had excellent stability with forward flexion to 90 degrees adduction of 30 degrees and internal rotation of 60 degrees. The hip had no shuck. The hip sat with an antibacterial solution. It was irrigated out with 2 L of pulse irrigation. The Steinmann pins were removed. The hip was closed by the PA. The deep tissue was irrigated and closed deep with #1 PDS suture superficially with 0 PDS suture and skin was closed with Dermabond and zip tie. The patient was placed in a sterile dressing and abduction pillow. The patient was transferred to the recovery room in stable condition. Anesthesia: spinal Surgeon: Van Seth Was there an equal opportunity assistant present: No Estimated blood loss (cc): 200 Condition: stable Disposition: PACU
[2018-11-25] MEDS ORDERED: *HR* Midazolam HCl 2 MG/2 ML VIAL ONE (11:15)
[2018-11-25] MEDS ORDERED: *HR* Propofol 200 MG/20 ML VIAL IVP ONE (11:16)
[2018-11-25] MEDS ORDERED: Lidocaine -MPF 2% 2 ML VIAL ONE (11:17)
[2018-11-25 11:26] LABS: Hematocrit 33.7 % (35.3-44.9); Hemoglobin 11.3 g/dL (11.5-15.4)
--- NOTE | 2018-11-25 11:38 | Anesthesia Evaluation Post Op ---
Date of Encounter: 11/25/18 Time of Encounter: 11:38 - Vital Signs Vital Signs: Vital Signs/O2 Sat, Most Current Temp Pulse Resp BP Pulse Ox 98.1 F 65 14 112/57 93 11/25/18 11:29 11/25/18 11:29 11/25/18 11:29 11/25/18 11:29 11/25/18 11:29 - Lungs Lungs: Clear Ascult./Percussion - Airway Airway: Non-obstructed - Cardiovascular Regular Rate, Baseline Rhythm - Mental Status Mental Status: Alert & Oriented, Answers Appropriately - Pain Pain Scale: 0 - Nausea Vomiting Nausea Vomiting: Not Present - Hydration Hydration: NPO - Discharge PostOp Status: Transfer Patient to floor
[2018-11-25] MEDS ORDERED: Temazepam 15 MG CAPSULE PO PRN (11:54)
[2018-11-25] MEDS ORDERED: Ondansetron 4 MG/2 ML VIAL IVP PRN (11:54)
[2018-11-25] MEDS ORDERED: *HR* Promethazine 25 MG/ML VIAL IVP PRN (11:54)
[2018-11-25] MEDS ORDERED: traMADol 50 MG TABLET PO PRN (11:54)
[2018-11-25] MEDS ORDERED: HYDROcodone BIT/Homatropine 5 MG TABLET PO PRN (11:54)
[2018-11-25] MEDS ORDERED: Naloxone 0.4 MG/ML INJ IVP PRN (11:54)
[2018-11-25] MEDS ORDERED: MOM Conc 10 ML UD.LIQ PO PRN (11:54)
[2018-11-25] MEDS ORDERED: Sennosides 8.6 MG TABLET PO PRN (11:54)
[2018-11-25] MEDS: *HR* LORazepam 1 MG TABLET PO SCH ×2 (12:48→20:21)
[2018-11-25] MEDS: Gabapentin 300 MG CAPSULE PO SCH ×3 (12:48→20:21)
[2018-11-25] MEDS: Multivit/Ca/Min/Fe/FA 1 TAB TABLET PO SCH (12:48)
[2018-11-25] MEDS: Ascorbic Acid 500 MG TABLET PO SCH (16:25)
[2018-11-25] MEDS: *HR* Enoxaparin 30 MG/0.3 ML SYRINGE SQ SCH (16:26)
[2018-11-25] MEDS ORDERED: *HR* Enoxaparin 30 MG/0.3 ML SYRINGE SQ SCH (18:00)
[2018-11-26 06:02] LABS: Basophils % 0.1 %; Eosinophils % 0.1 %; Hematocrit 29.1 % (35.3-44.9); Immature Granulocytes % 0.3 % (0-4); Lymphocytes # 1.9 K/mcL (0.6-4.6); Lymphocytes % 20.8 %; Mean Corpuscular HGB Conc 33.3 g/dL (31.6-35.5); Mean Corpuscular Hemoglobin 30.5 pg (28.0-33.3); Mean Corpuscular Volume 91.5 fL (83.0-100.0); Mean Platelet Volume 9.3 fL (9.4-12.4); Monocytes # 1.1 K/mcL (0.0-1.3); Platelet Count 262 K/mcL (140-400); Red Blood Count 3.18 M/mcL (3.82-4.97); Red Cell Distribution Width 12.9 % (11.5-14.5); Segmented Neutrophils % 66.7 %; White Blood Count 8.9 K/mcL (4.3-11.1)
[2018-11-26 06:20] LABS: Hemoglobin 9.7 g/dL (11.5-15.4)
[2018-11-26 06:22] VITALS: BP 116/70
[2018-11-26 06:27] LABS: BUN/Creatinine Ratio 20 (6-26); Blood Urea Nitrogen 20 mg/dL (8-23); Calcium 8.5 mg/dL (8.6-10.3); Carbon Dioxide 24 mEq/L (23-29); Chloride 104 mEq/L (98-107); Glucose 147 mg/dL (70-105); Osmolality,Calculated 289 (280-300); Potassium 3.9 mEq/L (3.5-5.1); Sodium 137 mEq/L (136-145); eGFR For African Americans > 60 (> 60); eGFR For Non-African Americans 56 (> 60)
[2018-11-26] MEDS: *HR* Enoxaparin 30 MG/0.3 ML SYRINGE SQ SCH (06:33)
--- NOTE | 2018-11-26 07:58 | Orthopedics Progress Note ---
Date of Encounter: 11/26/18 Time of Encounter: 07:57 Subjective Interval history: Patient was seen this morning doing well without complaints. Afebrile vital signs stable. Operative extremity: Neurovascularly intact Dressing clean dry and intact Calves nontender Assessment and plan: Continue with postoperative care Hemoglobin 9.7 discharged today Objective Vital signs: Vital Signs Temp Pulse Resp BP Pulse Ox 11/26/18 06:20 98.1 F 61 16 116/70 95 11/25/18 19:29 98.4 F 60 14 103/45 91 11/25/18 15:00 97.7 F 61 16 105/61 98 11/25/18 14:00 97.6 F 61 15 97/54 96 11/25/18 13:00 97.5 F L 58 15 124/59 96 11/25/18 12:30 97.5 F L 63 16 129/63 98 11/25/18 12:18 96 11/25/18 12:00 97.5 F L 64 16 142/63 97 11/25/18 11:49 98.1 F 66 14 130/63 92 11/25/18 11:39 67 14 128/66 95 11/25/18 11:29 98.1 F 65 14 112/57 93 11/25/18 11:19 66 14 119/60 98 11/25/18 11:09 66 14 114/64 96 11/25/18 10:59 97.7 F 78 16 106/53 98 11/25/18 09:30 56 139/66 99 Intake and Output 11/25/18 11/25/18 11/26/18 15:59 23:59 07:59 Intake Total 20 / 120 100 / 120 Output Total 200 / 500 300 / 500 Balance -180 / -380 -200 / -380 Intake: IV Fluids 20 / 120 100 / 120 Ancef Syringe 2,000 MG/20 ML 2, 20 / 20 000 mg In 20 ml @ 200 mls/hr IVPB PREOP ONE Rx#:[id number] Ancef 2,000 MG In 0.9 % Sodium 100 / 100 Chloride 100 ML @ 200 mls/hr IVPB Q8HR MERVIN Rx#:[id number] Output: Urine 0 / 300 300 / 300 Estimated Blood Loss 200 / 200 Other: # Voids 1 1 Weight 82.1 kg 82.4 kg Blood Glucose* 116 209 Patient Weight 11/26/18 23:59 Weight 82.4 kg - Labs CBC & BMP: 11/26/18 05:28 11/26/18 05:28 Labs: Abnormal lab results RBC 3.18 M/mcL (3.82-4.97) L 11/26/18 05:28 Hgb 9.7 g/dL (11.5-15.4) L D 11/26/18 05:28 Hct 29.1 % (35.3-44.9) L 11/26/18 05:28 MPV 9.3 fL (9.4-12.4) L 11/26/18 05:28 Est GFR (Non-Af Amer) 56 (> 60) L 11/26/18 05:28 Glucose 147 mg/dL (70-105) H 11/26/18 05:28 POC Glucose 208 mg/dL (70-99) H 11/25/18 20:04 Calcium 8.5 mg/dL (8.6-10.3) L 11/26/18 05:28 Consult Discharge Plan - Plan Referrals: Zaire Amaya DO [Primary Care Provider] -
[2018-11-26] MEDS: *HR* LORazepam 1 MG TABLET PO SCH (08:33)
[2018-11-26] MEDS: Multivit/Ca/Min/Fe/FA 1 TAB TABLET PO SCH (08:34)
[2018-11-26] MEDS: Gabapentin 300 MG CAPSULE PO SCH (08:34)
[2018-11-26] MEDS: Ascorbic Acid 500 MG TABLET PO SCH (08:34)
--- NOTE | 2018-11-26 11:46 | Discharge Summary ---
Date of Encounter: 11/26/18 Time of Encounter: 12:00 - Discharge Diagnosis (1) Arthritis of right hip Priority: Primary Status: Chronic (2) Status post total hip replacement, right Priority: Primary Status: Acute (3) Anxiety Priority: Secondary Status: Chronic (4) Depression Priority: Secondary Status: Chronic Qualifiers: Depression Type: unspecified Qualified Code(s): F32.9 - Major depressive disorder, single episode, unspecified (5) CKD (chronic kidney disease) Priority: Secondary Status: Chronic Qualifiers: Chronic kidney disease stage: unspecified stage Qualified Code(s): N18.9 - Chronic kidney disease, unspecified (6) Obesity (BMI 30.0-34.9) Priority: Secondary Status: Chronic - Hospital Course Hospital course: Ms. Langley is a 68 year old female POD#1 s/p Right Total Hip Replacment robotic-assisted[arthritis] 11/25/18 Patient seen at bedside. A&Ox3 Dressing and incision c/d/i No calf tenderness, erythema, or warmth. Neurovascularly intact b/l LE. Labwork, vitals, and medications reviewed. Pain control: Adequate Participating in therapy. All questions and concerns addressed. Educated on use of incentive spirometer, ambulation, and hydration. Patient educated on post-operative restrictions and care. Addressed: see above. The patient's postoperative course was uneventful. Progressed from intravenous analgesic needs to oral analgesic needs only. Remained neurovascularly intact and mobilized satisfactorily. All radiographic studies were satisfactory. Patient course and disposition discussed with Dr. Seth. Patient is discharged to home with home health with plan for rehabilitation and outpatient orthopedic follow up has been arranged. - Time Spent with Patient Total time spent providing and/or coordinating discharge services: - Discharge Medications Prescriptions: New Aspirin Enteric Coated [Aspirin EC] 325 mg PO BID 10 Days #20 tablet. Docusate Sodium [Colace] 100 mg PO BID 5 Days #10 capsule OxyCODONE Immed Rel [Roxicodone 5 MG] 5 mg PO Q6HR PRN 5 Days #20 tablet PRN Reason: Severe Pain Continued Sertraline [Zoloft] 100 mg PO QAM LORazepam [Ativan] 1 mg PO BID Home Medications: LORazepam [Ativan] 1 mg PO BID 07/31/18 [History] Sertraline [Zoloft] 100 mg PO QAM 07/31/18 [History] Aspirin Enteric Coated [Aspirin EC] 325 mg PO BID 10 Days #20 tablet. 11/26/18 [Rx] Docusate Sodium [Colace] 100 mg PO BID 5 Days #10 capsule 11/26/18 [Rx] OxyCODONE Immed Rel [Roxicodone 5 MG] 5 mg PO Q6HR PRN 5 Days #20 tablet 11/26/18 [Rx] Allergies/Adverse Reactions: Allergy/AdvReac Type Severity Reaction Status Date / Time No Known Allergies Allergy Verified 11/25/18 07:34 Date of admission: 11/25/18 11:59 Primary care physician: Zaire Amaya Consults: 11/25/18 11:54 Consult to Nurse Navigator [CONS] Routine Comment: ortho navigator Consult to Nutrition [CONS] Routine Comment: Consulting Provider: NUTRITION Reason for Dietary Consult: Other Other:: Proper nutrition to facilitate wound healing Consult to Occupational Therapy [CONS] Routine Comment: Evaluate, develop and implement POC Reason for Consult: total hip replacement Does patient have active BEDREST order?: No Is patient medically & hemodynamically stable?: Yes Consult to Physical Therapy [CONS] Routine Comment: Evaluate, develop and implement POC Reason for Consult: total hip replacement Does patient have active BEDREST order?: No Is patient medically & hemodynamically stable?: Yes Consult to Hot Plate Plywood Press Operator [CONS] Routine Reason for SW Consult: post op joint replacement RT Post Op Consult [CONS] Routine Discharging clinician: Van Seth Anticipated date of discharge: 11/26/18 - VTE Documentation of Mechanical Device: Venous foot pump, device Labs on day of discharge: Labs from last 24 hours 11/26/18 11/26/18 11/25/18 05:28 05:28 20:04 WBC 8.9 RBC 3.18 L Hgb 9.7 L D Hct 29.1 L MCV 91.5 MCH 30.5 MCHC 33.3 RDW 12.9 Plt Count 262 MPV 9.3 L Immature Gran % 0.3 Seg Neutrophils % 66.7 Lymphocytes % 20.8 Monocytes % 12.0 Eosinophils % 0.1 Basophils % 0.1 Neutrophils # 6.0 Lymphocytes # 1.9 Monocytes # 1.1 Eosinophils # 0.0 Basophils # 0.0 Sodium 137 Potassium 3.9 Chloride 104 Carbon Dioxide 24 BUN 20 Creatinine 0.98 Est GFR ( Amer) > 60 Est GFR (Non-Af Amer) 56 L BUN/Creatinine Ratio 20 Glucose 147 H POC Glucose 208 H Calculated Osmolality 289 Calcium 8.5 L - Impressions ITS Impressions Hip X-Ray 11/25/18 01:00 IMPRESSION: Postoperative change of right hip total arthroplasty, without hardware complication. D/ / Derrell Ribeiro MD / Derrell Ribeiro MD Interpreting Provider: Derrell Ribeiro MD - Patient Status Disposition: Home Health Service Condition: Good Functional capacity at discharge: uses cane/walker Overall status at discharge: patient is progressing back to baseline - Discharge Instructions Follow Up With: Renee Vargas PAC [Physician Supervisor [employer] Office] - 12/03/18 1:00 pm Van Seth MD [Partnered Physician] - 12/23/18 4:20 pm - Diet and Activity Activity: as per physical therapy Diet: advance to your usual diet
--- NOTE | 2018-11-26 11:46 | Physician Discharge Referral ---
Home Health/Hosp Referral Info Transfer to: Home Health Attending Provider: Dr. Van Seth - Diagnosis (1) Status post total hip replacement, right Priority: Primary Status: Acute (2) Arthritis of right hip Priority: Primary Status: Chronic (3) CKD (chronic kidney disease) Priority: Secondary Status: Chronic (4) Depression with anxiety Priority: Secondary Status: Chronic (5) Obesity (BMI 30.0-34.9) Priority: Secondary Status: Chronic - Respiratory Orders Smoking Cessation: Smoking cessation has been advised. For more information, call the [place] Tobacco Quit Line at 4-744-TPIV-NOW. - Diet/Nutrition Diet/Nutrition Orders: Regular - Activity Activity Orders: Up ad yovany, Ambulate, Chair, Walker - Services Needed Following services are medically necessary services: Nursing, Home Health Aide, Physical Therapy, Occupational Therapy, Med Social Work Home Care Orders: Opsite placed. Keep dressing intact until first follow up appointment. If greater than 50% saturated, notify office, remove dressing and place appropriate dressing back in place. Leave Zipline intact. Opsite dressing is water resistant, not water-proof. OK to shower, but do not get dressing wet. Total Hip replacement Precautions Apply cold therapy 3-6x/day for 20 minutes at a time. Encourage ambulation throughout the day and incentive spirometer 10x/hour. Elevate affected extremity as tolerated. Brace: Wear hip abduction pillow when laying/sleeping - Transfer Medications Prescriptions: Aspirin Enteric Coated [Aspirin EC] 325 mg PO BID 10 Days #20 tablet. Doccassy Sodium [Colace] 100 mg PO BID 5 Days #10 capsule OxyCODONE Immed Rel [Roxicodone 5 MG] 5 mg PO Q6HR PRN 5 Days #20 tablet PRN Reason: Severe Pain Home Medications: LORazepam [Ativan] 1 mg PO BID 07/31/18 [History] Sertraline [Zoloft] 100 mg PO QAM 07/31/18 [History] Aspirin Enteric Coated [Aspirin EC] 325 mg PO BID 10 Days #20 tablet. 11/26/18 [Rx] Docusate Sodium [Colace] 100 mg PO BID 5 Days #10 capsule 11/26/18 [Rx] OxyCODONE Immed Rel [Roxicodone 5 MG] 5 mg PO Q6HR PRN 5 Days #20 tablet 11/26/18 [Rx] Allergies/Adverse Reactions: Allergy/AdvReac Type Severity Reaction Status Date / Time No Known Allergies Allergy Verified 11/25/18 07:34 Certification: Further, I certify that my clinical findings support that this patient is homebound (i.e. absences from home require considerable and taxing effort and are for medical reasons or judaism services or infrequently or short duration when for other reasons) because: Homebound Reason: Post-surgery restriction and or conditions limit ability to leave home Attestation: My signature below is to certify that this patient is under my care and that I, or nurse practitioner, or a physician clinical data assistant working with me, has a [id number] encounter with this patient.
== END 2018-11-26 16:01 | disposition home health service (06) | DRG 470 ==
LOC: SAMDAY 06:54 → 3NENU 11:59
PROVIDERS: ADMIT Orthopaedic Surgery; ATTEND Orthopaedic Surgery